=== PATIENT | female | born 1995 | race Caucasian/White ===

== ENCOUNTER 2025-01-12 06:19 | Inpatient (IN) | payer SELFPAY ==
[2025-01-12] VITALS (11 sets, daily range): BP systolic 90–119; BP diastolic 52–82; TEMP 97.3; O2SAT 96–100
[~2025-01-12] VITALS: Ht 114.3 cm; Wt 45.3 kg
[~2025-01-12 06:19] MED LIST: IBUP80TA PO; MULTTAB20 PO; PERCOCET PO
[2025-01-12 07:01] LABS: HEMATOCRIT 35.1 % (36.0-47.0); HEMOGLOBIN 12.4 g/dl (12.0-15.5); MEAN CORPUSCULAR HEMOGLOBIN 32.5 pg (27.0-33.0); MEAN CORPUSCULAR HGB CONC 35.3 g/dl (32.0-36.5); MEAN CORPUSCULAR VOLUME 92.1 fl (80.0-96.0); PLATELET COUNT, AUTOMATED 135 10^3/uL (150-450); RED BLOOD COUNT 3.81 10^6/uL (4.00-5.40); WHITE BLOOD COUNT 6.2 10^3/uL (4.0-10.0)
[2025-01-12] MEDS: BICITRA 30ML SOLN UDC PO ONE (07:10)
[2025-01-12] MEDS: ceFAZolin SOD 2 GM in IV 1 EA IV ONE (07:10)
[2025-01-12] MEDS: LACTATED RINGER'S 1000 ML IV STA (07:10)
[2025-01-12] MEDS: LR 1,000 ML IV SCH ×2 (07:10→08:25)
[2025-01-12] MEDS ORDERED: HOME MED LIST COMPLETE! XX SCH (07:20)
[2025-01-12] MEDS ORDERED: MORPHINE PRES-FREE INJ 10 MG/10 ML VIAL As Ordered ONE (07:43)
[2025-01-12] MEDS ORDERED: ACETAMINOPHEN 1000MG/100ML IV BAG As Ordered ONE (07:44)
[2025-01-12] MEDS ORDERED: ePHEDrine SULFATE 25 MG/5 ML(5MG/ML) SYRINGE As Ordered ONE (07:44)
[2025-01-12] MEDS ORDERED: ONDANSETRON 4MG 2ML VIAL As Ordered ONE (07:44)
[2025-01-12] MEDS ORDERED: KETOROLAC 60MG 2ML VIAL As Ordered ONE (07:44)
[2025-01-12] MEDS ORDERED: OXYTOCIN 30UNITS IN 0.9% NaCl 500ML IV BAG As Ordered ONE (07:44)
[2025-01-12] MEDS ORDERED: PHENYLephrine 500MCG 5ML (100MCG/ML) SYRINGE As Ordered ONE (07:44)
[2025-01-12 07:56] LABS: HIV 1&2 SCREEN NEGATIVE (NEGATIVE)
[2025-01-12] MEDS ORDERED: PERCOCET 5MG/325MG TAB PO PRN (08:25)
[2025-01-12] MEDS ORDERED: DOCUSATE SODIUM 100MG CAPSULE PO PRN (08:25)
[2025-01-12] MEDS ORDERED: SIMETHICONE 80MG CHEW TAB PO PRN (08:25)
[2025-01-12] MEDS ORDERED: RHOGAM 300MCG (1500IU) INJ IM SCH (08:25)
[2025-01-12] MEDS ORDERED: ONDANSETRON 4MG TAB PO PRN (08:25)
[2025-01-12 08:41] LABS: CORD GAS ABE V -1.2; CORD GAS HCO3 V 21.7 MMOL/L; CORD GAS O2 SAT V 77.5 %; CORD GAS PCO2 V 31.9 mmHg; CORD GAS PH V 7.451 UNITS; CORD GAS PO2 V 30.7 mmHg; CORD GAS TCO2 V 22.7 MMOL/L
[2025-01-12 08:44] LABS: CORD GAS ABE A -4.4; CORD GAS HCO3 A 20.9 MMOL/L; CORD GAS O2 SAT A 95.8 %; CORD GAS PCO2 A 39.6 mmHg; CORD GAS PH A 7.341 UNITS; CORD GAS PO2 A 64.8 mmHg; CORD GAS SBC A 20.8 MMOL/L; CORD GAS TCO2 A 22.1 MMOL/L
[2025-01-12] MEDS: PRENATAL VITAMINS CHEWABLE TABLET PO SCH (09:00)
[2025-01-12] MEDS: KETOROLAC 30 MG/ML 1ML VIAL IV SCH (14:12)
[2025-01-13 01:57] VITALS: BP 107/57; O2SAT 97
[2025-01-13 06:14] VITALS: BP 90/52; O2SAT 96
[2025-01-13 06:51] LABS: MEAN CORPUSCULAR HEMOGLOBIN 32.3 pg (27.0-33.0); MEAN CORPUSCULAR HGB CONC 34.3 g/dl (32.0-36.5); MEAN CORPUSCULAR VOLUME 94.4 fl (80.0-96.0); RED BLOOD COUNT 3.03 10^6/uL (4.00-5.40); WHITE BLOOD COUNT 7.1 10^3/uL (4.0-10.0)
[2025-01-13 07:36] LABS: HEMATOCRIT 28.6 % (36.0-47.0); HEMOGLOBIN 9.8 g/dl (12.0-15.5); PLATELET COUNT, AUTOMATED 92 10^3/uL (150-450)
[2025-01-13 10:00] VITALS: BP 107/57; O2SAT 97
[2025-01-13] MEDS: IBUPROFEN 600MG TAB PO PRN (10:44)
[2025-01-13 14:00] VITALS: BP 110/60; O2SAT 97
[2025-01-13 18:00] VITALS: BP 130/77; O2SAT 99
[2025-01-13 22:00] VITALS: BP 123/63; O2SAT 98
[2025-01-14 02:00] VITALS: BP 121/73; O2SAT 97
[2025-01-14 05:50] VITALS: BP 128/74; O2SAT 98
[2025-01-14] MEDS ORDERED: MEASLES,MUMPS,RUBELLA VACCINE INJ (MMR-II) SC.IMMUN ONE (09:00)
[2025-01-14 10:00] VITALS: BP 101/59; O2SAT 95
[2025-01-14] MEDS ORDERED: COLA100C5 PO (10:28)
[2025-01-14] MEDS ORDERED: IBUP-1022 PO (10:28)
[2025-01-14] MEDS ORDERED: ACET-683 PO (10:53)
== END 2025-01-14 12:36 | disposition home or self-care (01) | DRG 540 ==
LOC: M LDI 06:19 → M OBS 09:48
PROVIDERS: ADMIT Specialist; ATTEND Specialist
PROC: 10D00Z1 Extraction of Products of Conception, Low, Open Approach (ICD-10-PCS; principal; 2025-01-12 07:30)
DX: O34.211 Maternal care for low transverse scar from previous cesarean delivery (principal); Z37.0 Single live birth; Z3A.39 39 weeks gestation of pregnancy